=== PATIENT | female | born 1990 | race Two or more races ===

== ENCOUNTER 2018-01-31 18:44 | Emergency (ER) | payer SELFPAY ==
[~2018-01-31] VITALS: Ht 152.4 cm; Wt 63.5 kg
[2018-01-31 18:53] VITALS: BP 122/79
== END 2018-02-01 00:05 | disposition left against medical advice (07) ==
LOC: ER 18:44
DX: M79.642 Pain in left hand (principal); Z53.21 Procedure and treatment not carried out due to patient leaving prior to being seen by health care provider
CPT/HCPCS: 73130